=== PATIENT | male | born 1975 | race Caucasian/White ===

== ENCOUNTER 2017-02-23 11:41 | Emergency (ER) | payer OTHER ==
[2017-02-23] MEDS ORDERED: Lidocaine 1% 30 ML SDV INJECT ONE (11:46)
--- NOTE | 2017-02-23 11:52 | EDM.PDOC ---
ED HPI GENERAL MEDICAL PROBLEM - General Chief Complaint: Skin Complaint Stated Complaint: LACERATION ON FINGER Time Seen by Provider: 02/23/17 11:44 Source of Information: Reports: Patient, RN, RN Notes Reviewed History Limitations: Reports: No Limitations - History of Present Illness INITIAL COMMENTS - FREE TEXT/NARRATIVE: Patient presents to the ED at [facility] for a laceration to the dorsum of the left index finger. Patient states she was using a cutting knife to cut wood , when the knife slipped, causing the laceration. No previous injury or trauma. Patient denies any numbness, tingling, or paresthesia. Onset: Today - Related Data Allergies Allergy/AdvReac Type Severity Reaction Status Date / Time morphine Allergy Cardiac Verified 02/23/17 12:01 Arrest Sulfa (Sulfonamide Allergy Cannot Verified 02/23/17 12:01 Antibiotics) Remember Home Meds: Home Meds . [Unable to Verify Home Med List] 02/23/17 [History] ED ROS GENERAL - Review of Systems Review Of Systems: See Below Constitutional: Denies: Fever, Chills, Weakness Respiratory: Denies: Shortness of Breath, Cough Cardiovascular: Denies: Chest Pain, Palpitations Skin: Reports: Wound (cut to left index finger) Neurological: Reports: No Symptoms. Denies: Numbness, Paresthesia, Tingling ED EXAM, SKIN/RASH Exam: See Below Exam Limited By: No Limitations General Appearance: Alert, No Apparent Distress Respiratory/Chest: No Respiratory Distress, Lungs Clear, Normal Breath Sounds Cardiovascular: Regular Rate, Rhythm Peripheral Pulses: 2+: Radial (L), Radial (R) Neurological: Alert, Oriented Skin: Warm, Dry, Normal Color, No Rash, Wound/Incision (1.5cm horizontal laceration to the dorsum of the MIP joint left hand; no bleeding; clean wound) ED SKIN PROCEDURES - Laceration/Wound Repair Left Finger Lac/Wound length In cm: 1.5 Appearance: Subcutaneous, Linear, Clean Distal NVT: Neuro & Vascular Intact, No Tendon Injury Anesthetic Type: Local Local Anesthesia - Lidocaine (Xylocaine): 1% Plain Local Anesthetic Volume: 3cc Skin Prep: Chlorhexidine (Hibiciens), Saline Exploration/Debridement/Repair: Wound Explored, in a Bloodless Field, Explored to Base, No Foreign Material Found, Wound Margins Revised Closed with: Sutures Suture Size: 4-0 # of Sutures: 4 Suture Type: Nylon, Interrupted, Simple Sterile Dressing Applied: Nurse Tetanus Status Addressed: Yes Complications: No Course - Vital Signs Last Recorded V/S: Last Vital Signs Temp 36.6 C 02/23/17 11:45 Pulse 66 02/23/17 11:45 Resp 16 02/23/17 11:45 BP 144/90 H 02/23/17 11:45 Pulse Ox - Orders/Labs/Meds Meds: Medications Discontinued Medications Generic Name Dose Route Start Last Admin Trade Name Jerardo PRN Reason Stop Dose Admin Lidocaine HCl 30 ml 02/23/17 11:46 02/23/17 11:54 Xylocaine-Mpf 1% INJECT 02/23/17 11:47 30 ml ONETIME ONE Administration Departure - Departure Time of Disposition: 12:10 Disposition: Home, Self-Care 01 Condition: Good Clinical Impression: Laceration of finger Qualifiers: Encounter type: initial encounter Finger: index finger Damage to nail status: without damage Foreign body presence: without foreign body Laterality: left Qualified Code(s): S61.211A - Laceration without foreign body of left index finger without damage to nail, initial encounter - Discharge Information Instructions: Laceration Care, Adult, Sutured Wound Care Forms: ED Department Discharge Additional Instructions: 1. Stay well hydrated and rest 2. Leave bandage on for 24 hours, then remove 3. Keep area clean and dry 4. Suture need to stay in for 10 days or longer 5. See your Primary in 10 days for wounds recheck and possible suture removal - Problem List Review Problem List Initiated/Reviewed/Updated: Yes
[2017-02-23 12:09] VITALS: BP 144/90
== END 2017-02-23 12:15 | disposition home or self-care (01) ==
LOC: VM.ED 11:41
DX: S61.211A Laceration without foreign body of left index finger without damage to nail, initial encounter (principal); Z88.2 Allergy status to sulfonamides; Z88.5 Allergy status to narcotic agent; W26.0XXA Contact with knife, initial encounter
CPT/HCPCS: 12001; 99282-GF-25; 99283

== ENCOUNTER 2021-05-26 09:57 | Emergency (ER) | payer OTHER ==
[2021-05-26] MEDS: Sodium Chloride 0.9% 1,000 ML IV ONE (10:30)
--- NOTE | 2021-05-26 11:08 | EDM.PDOC ---
ED HPI GENERAL MEDICAL PROBLEM - General Chief Complaint: General Stated Complaint: dizzy Time Seen by Provider: 05/26/21 10:30 Source of Information: Reports: Patient History Limitations: Reports: No Limitations - History of Present Illness INITIAL COMMENTS - FREE TEXT/NARRATIVE: Patient states over the last couple days he has had some body aches and dizziness episodes ongoing since Tuesday but today he woke up with severe dizziness like the whole room was spinning and sweating all over and had some tingling/coldness feeling in his chest. He was diagnosed with Covid about 2 weeks ago and was treated with ivermectin and vitamin D and C and has been doing well has not had a fever since last Tuesday Till this morning. He recently had a Achilles tendon repair to the left lower extremity about 5 months ago and had a DVT postop he was treated 6 weeks with medication he was rechecked with ultrasound 3 months ago no DVT he denies any pain swelling or redness states he does not have any the symptoms like he did with his prior DVT. He has type II diabetic controlled with oral agents he also takes hypertension medication which he states is usually controlled. He has no other symptoms and those treated above he denies any syncopal or near syncopal episodes no shortness of breath Duration: Day(s): Location: Reports: Chest Improves with: Reports: Other (Dizziness improves with being still he denies any chest pain) Worsens with: Reports: Movement Associated Symptoms: Reports: Diaphoresis, Headaches. Denies: Confusion, Chest Pain, Cough, Fever/Chills, Loss of Appetite, Nausea/Vomiting, Rash, Seizure, Shortness of Breath, Syncope, Weakness - Related Data Allergies Allergy/AdvReac Type Severity Reaction Status Date / Time morphine Allergy Cardiac Verified 05/26/21 11:06 Arrest Sulfa (Sulfonamide Allergy Cannot Verified 05/26/21 11:06 Antibiotics) Remember Home Meds: Home Meds Aspirin 81 mg PO DAILY 05/26/21 [History] Lisinopril/Hydrochlorothiazide [Lisinopril-Hctz 20-12.5 mg Tab] 1 each PO 05/26/21 [History] Sertraline [Zoloft] 100 mg PO DAILY 05/26/21 [History] metFORMIN HCl [Metformin HCl] 1,000 mg PO 05/26/21 [History] Past Medical History Cardiovascular History: Reports: Hypertension Other Neuro History: 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 Denies: Vision Change Respiratory: Reports: No Symptoms Cardiovascular: Reports: No Symptoms. Denies: Chest Pain, Blood Pressure Problem, Dyspnea on Exertion, Lightheadedness, Orthopnea, Palpitations, Syncope Endocrine: Reports: No Symptoms GI/Abdominal: Reports: No Symptoms : Reports: No Symptoms Musculoskeletal: Reports: No Symptoms Skin: Reports: Diaphoresis Neurological: Reports: Dizziness. Denies: Confusion, Headache, Numbness, Paresthesia, Tingling, Trouble Speaking, Difficulty Walking, Weakness, Change in Speech Psychiatric: Reports: No Symptoms Hematologic/Lymphatic: Reports: No Symptoms Immunologic: Reports: No Symptoms ED EXAM, DIZZINESS - Physical Exam Exam: See Below Exam Limited By: No Limitations General Appearance: Alert, WD/WN, No Apparent Distress Eye Exam: Bilateral Eye: EOMI, Normal Inspection, PERRL Ears: Normal External Exam, Normal Canal, Hearing Grossly Normal, Normal TMs, Other (Noted significant air-fluid levels in the left ear very mild in the right landmarks are intact nondisplaced bilateral no bulging no erythema) Nose: Normal Inspection, Normal Mucosa, No Blood Throat/Mouth: Normal Inspection, Normal Lips, Normal Teeth, Normal Gums, Normal Oropharynx, Normal Voice, No Airway Compromise Head Exam: Atraumatic, Normocephalic Neck: Normal Inspection, Supple, Non-Tender, Full Range of Motion Respiratory/Chest: No Respiratory Distress, Lungs Clear, Normal Breath Sounds, No Accessory Muscle Use, Chest Non-Tender Cardiovascular: Normal Peripheral Pulses, Regular Rate, Rhythm, No Edema, No Gallop, No JVD, No Murmur, No Rub, Tachycardia GI/Abdominal: Normal Bowel Sounds, Soft, Non-Tender, No Organomegaly, No Distention Neurological: Alert, Normal Mood/Affect, Normal Dorsiflexion, CN II-XII Intact, Normal Plantar Flexion, Normal Gait, Normal Reflexes, No Motor/Sensory Deficits, Oriented x 3 Back Exam: Normal Inspection, Full Range of Motion Extremities: Normal Inspection, Normal Range of Motion, Non-Tender, No Pedal Edema, Normal Capillary Refill, Other (Exam to bilateral calfs there is no noted edema they are equal circumference there is no erythema no tenderness palpation over the calf positive dorsalis pedis posterior tibialis bilateral no signs or symptoms of any DVT) Psychiatric: Normal Affect, Normal Mood Skin Exam: Warm, Dry, Intact, Normal Color, No Rash #1 Interpretation EKG Date: 05/26/21 Time: 10:40 Rhythm: NSR [place]: Normal P-Wave: Present QRS: Normal ST-T: Normal QT: Normal Course - Vital Signs Text/Narrative:: Secondary to the patient's signs and symptoms we will check CBC BMP troponin EKG chest x-ray I believe this is secondary to the air-fluid levels in his ears though Second troponin no changes still at 22 recheck patient states he feels much better after the meclizine will discharge home Patient vital signs are all within normal limits time of discharge Chest x-ray no acute findings Last Recorded V/S: Last Vital Signs Temp 35.6 C L 05/26/21 10:00 Pulse 114 H 05/26/21 10:00 Resp 16 05/26/21 10:00 BP 131/90 05/26/21 10:00 Pulse Ox 100 05/26/21 10:00 - Orders/Labs/Meds Labs: Laboratory Tests 05/26/21 05/26/21 05/26/21 Range/Units 10:28 10:28 13:35 WBC 4.5 (4.0-10.0) x10^3/uL RBC 5.71 (4.5-6.0) x10^6/uL Hgb 17.0 (14.0-18.0) g/dL Hct 48.5 (40.0-52.0) % MCV 84.9 (78.0-93.0) fL MCH 29.8 (26.0-32.0) pg MCHC 35.1 (32.0-36.0) g/dL RDW Coeff of Erica 12.1 (10.0-15.0) % Plt Count 105 L (130-400) x10^3/uL Immature Gran % (Auto) 0.20 (0.00-0.43) % Neut % (Auto) 36.9 L (50.0-80.0) % Lymph % (Auto) 47.0 (25.0-50.0) % [place] % (Auto) 15.5 H (2.0-11.0) % Eos % (Auto) 0.2 (0.0-4.0) % Baso % (Auto) 0.2 (0.2-1.2) % Neut # (Auto) 1.7 L (1.8-7.7) x10^3/uL Lymph # (Auto) 2.1 (1.0-4.8) x10^3/uL [place] # (Auto) 0.7 (0.0-0.8) x10^3/uL Eos # (Auto) 0.0 (0.0-0.5) x10^3/uL Baso # (Auto) 0.0 (0.0-0.2) x10^3/uL Immature Gran # (Auto) 0.01 (0.00-0.07) x10^3/uL Sodium 136 (136-145) mmol/L Potassium 3.8 (3.5-5.1) mmol/L Chloride 99 (98-107) mmol/L Carbon Dioxide 24 (21-32) mmol/L Anion Gap 16.8 H (5-15) mmol/L BUN 19 H (7-18) mg/dL Creatinine 1.4 H (0.70-1.30) mg/dL Est Cr Clr Drug Dosing 76.65 mL/min Estimated GFR (MDRD) 55 Glucose 133 H (70-99) mg/dL Calcium 8.7 (8.5-10.1) mg/dL Troponin I High Sens 22 22 (<=76) ng/L Meds: Medications Discontinued Medications Generic Name Dose Route Start Last Admin Trade Name Freq PRN Reason Stop Dose Admin Sodium Chloride 1,000 mls @ 999 mls/hr 05/26/21 11:01 05/26/21 10:30 Normal Saline IV 05/26/21 12:01 999 mls/hr ONETIME ONE Administration Meclizine HCl 50 mg 05/26/21 11:49 05/26/21 11:55 Meclizine 25 Mg Tab PO 05/26/21 11:50 50 mg ONETIME ONE Administration Departure - Departure Time of Disposition: 14:20 Disposition: Home, Self-Care 01 Condition: Good Clinical Impression: Dizziness, Diaphoresis, Tachycardia - Discharge Information *PRESCRIPTION DRUG MONITORING PROGRAM REVIEWED*: No *COPY OF PRESCRIPTION DRUG MONITORING REPORT IN PATIENT JUAN MANUEL: No Instructions: Dizziness, [id number] Referrals: Araceli Hobbs MD [Primary Care Provider] - Forms: ED Department Discharge Additional Instructions: Take the meclizine as directed 25 mg 1 to 2 tablets every 8 hours for the next 3 to 4 days Follow-up with your primary care provider in the next 24 to 48 hours Continue to increase the amount of fluids that you drink daily Return to the emergency room if anything changes or gets worse Sepsis Event Note (ED) - Focused Exam Vital Signs: Vital Signs Temp Pulse Resp BP Pulse Ox 05/26/21 10:00 35.6 C L 114 H 16 131/90 100 - Problem List & Annotations (1) Diaphoresis SNOMED Code(s): 34289495 Code(s): R61 - GENERALIZED HYPERHIDROSIS Status: Acute Current Visit: Yes (2) Dizziness SNOMED Code(s): 697382977, 842385523 Code(s): R42 - DIZZINESS AND GIDDINESS Status: Acute Current Visit: Yes (3) Tachycardia SNOMED Code(s): 2098047 Code(s): R00.0 - TACHYCARDIA, UNSPECIFIED Status: Acute Current Visit: Yes
[2021-05-26 11:38] LABS: ANION GAP 16.8 mmol/L (5-15)
[2021-05-26] MEDS: Meclizine 25 MG Tab PO ONE (11:55)
--- NOTE | 2021-05-26 12:52 | CR ---
[id number] RAD/RAD Chest PA or AP 1V EXAM: SINGLE VIEW CHEST. INDICATION: DIAPHORESIS COMPARISON: CORRELATION IS MADE WITH DECEMBER 24, 2019 FINDINGS: The lungs are clear The cardiomediastinal contour is stable IMPRESSION: NO PNEUMONIA OR EDEMA Tobin Patel MD 05/26/21 [id number] Thank you for allowing us to participate in the care of your patient.
[2021-05-26 15:39] VITALS: BP 116/72
[2021-05-26 15:40] VITALS: PULSE 78
== END 2021-05-26 14:35 | disposition home or self-care (01) ==
LOC: VM.ED 09:57
DX: R61 Generalized hyperhidrosis (principal); R42 Dizziness and giddiness; R00.0 Tachycardia, unspecified; I10 Essential (primary) hypertension; Z88.5 Allergy status to narcotic agent; Z88.2 Allergy status to sulfonamides; Z79.82 Long term (current) use of aspirin; Z79.899 Other long term (current) drug therapy
CPT/HCPCS: 36415; 71045; 80048; 84484; 85025; 93005; 93010; 99284; 99284-25; A9270-GY; J7030